=== PATIENT | female | born 1955 | race Caucasian/White ===

== ENCOUNTER 2023-01-15 12:57 | Outpatient (AMB) | payer OTHER, MEDICAID, SELFPAY ==
--- NOTE | 2023-01-15 13:19 | HO.NEPHOV_ITS ---
HPI HPI Comments History of Present Illness Details I had the privilege of seeing Alyssa in follow-up for chronic kidney disease and hypertension. Her blood sugars are better controlled. Her blood pressure has been at goal. She denies chest pain, shortness of breath, proximal nocturnal dyspnea, orthopnea, pedal edema, hematuria, fever, chills, rigors. She does not take any nonsteroidal anti-inflammatory medications. She is on lisinopril as well as diuretics. She denies any hypo glycemia. There were no new active complaints at the time of this office visit. [facility] Medical History (Updated 01/26/23 @ 03:09 by Moreno Talley MD) Hypertension Chronic kidney disease, stage 3a Surgical History (Updated 01/15/23 @ 13:24 by Tessa Conway MA) History of appendectomy Family History (Updated 01/15/23 @ 13:27 by Tessa Conway MA) Mother Cancer Sister Pacemaker Social History (Updated 01/15/23 @ 13:24 by Tessa Conway MA) Alcohol intake: never Patient Tobacco Use Status: Never used Tobacco Vital Signs 01/15/23 13:21 Height 5 ft Weight 200 lb BMI 39.1 BP 110/60 Blood Pressure Location Rt brachial Position Sitting Pulse 68 Pulse Source Pulse Oximeter Physical Exam Vital Signs: Last Vital Signs Pulse 68 01/15/23 13:21 BP 110/60 01/15/23 13:21 BMI result Body Mass Index 39.1 Const General: comfortable and no acute distress Orientation/consciousness: patient oriented x3 HEENT Head: Yes normocephalic Mouth: Normal oral and palatal mucosa present Eyes EOM: EOMs intact bilaterally Neck Neck: Yes supple Resp Auscultation: clear to auscultation bilaterally Cardio Jugular venous distension: no JVD Rate: regular rate GI Palpation (GI): Soft to palpation Auscultation: normal bowel sounds General: Yes no CVA tenderness Back/Spine/Pelvis Back: no CVA tenderness Skin General skin exam: no rashes or lesions noted Neuro General: patient oriented x3 and moves all extremities Extrem General: Yes no pedal edema Assessment & Plan Assessment & Plan (1) Hypertension: Code(s): I10 - Essential (primary) hypertension Qualifiers: Hypertension type: primary hypertension Qualified Code(s): I10 - Essential (primary) hypertension (2) Chronic kidney disease, stage 3a: Code(s): N18.31 - Chronic kidney disease, stage 3a Chandan Shah has 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 Her blood pressure is well controlled. She is tolerating WAI inhibitor. He is not on Jardiance no. She avoids nonsteroidal anti-inflammatories. She needs good maintenance of blood sugar and blood pressure at goal. She will benefit from weight loss. She needs to maintain good hydration. Follow-up labs were ordered. She is on statins. I did not make any medication changes at this visit. All questions answered. Follow-up given. Orders: Orders Electrolytes 01/15/23 I10 - Essential (primary) hypertension, N18.31 - Chronic kidney disease, stage 3a Blood Urea Nitrogen 01/15/23 I10 - Essential (primary) hypertension, N18.31 - Chronic kidney disease, stage 3a Calcium 01/15/23 I10 - Essential (primary) hypertension, N18.31 - Chronic kidney disease, stage 3a Protein Creatinine Ratio, Ur 01/15/23 I10 - Essential (primary) hypertension, N18.31 - Chronic kidney disease, stage 3a Creatinine 01/15/23 I10 - Essential (primary) hypertension, N18.31 - Chronic kidney disease, stage 3a Coding Level of Care Code Est Pt Level 3 (61196) Diagnoses Primary hypertension I10 Hypertension type: primary hypertension Chronic kidney disease, stage 3a N18.31 Results Reviewed Nephrology Results: No Data to Display
[2023-01-15 13:21] VITALS: BP 110/60; PULSE 68; BMI 39.1
== END 2023-01-15 14:07 | disposition home or self-care (01) ==
PROVIDERS: PCP Internal Medicine; Visit Provider Internal Medicine Nephrology
DX: I10 Essential (primary) hypertension (principal); N18.31 Chronic kidney disease, stage 3a
CPT/HCPCS: 99213

== ENCOUNTER → 2023-01-15 12:57 | Outpatient (BNVA) | payer OTHER, MEDICAID, SELFPAY | PROVIDERS: PCP Internal Medicine; Visit Provider Internal Medicine Nephrology | DX: I12.9 Hypertensive chronic kidney disease with stage 1 through stage 4 chronic kidney disease, or unspecified chronic kidney disease (principal); N18.31 Chronic kidney disease, stage 3a | CPT/HCPCS: 99212 ==

== ENCOUNTER 2023-05-19 13:34 | Outpatient (AMB) | payer MEDICARE, SELFPAY ==
--- NOTE | 2023-05-19 13:40 | HO.NEPHOV_ITS ---
HPI HPI Comments History of Present Illness Details I had the privilege of seeing Alyssa in follow-up for chronic kidney disease and hypertension. Her blood sugars are better controlled. Her blood pressure has been at goal. She denies chest pain, shortness of breath, proximal nocturnal dyspnea, orthopnea, pedal edema, hematuria, fever, chills, rigors. She does not take any nonsteroidal anti-inflammatory medications. She is on lisinopril as well as diuretics. She denies any hypo glycemia. [facility] Medical History (Updated 01/26/23 @ 03:09 by Moreno Talley MD) Hypertension Chronic kidney disease, stage 3a Surgical History (Updated 01/15/23 @ 13:24 by Tessa Conway MA) History of appendectomy Family History (Updated 01/15/23 @ 13: by Tessa Conway MA) Mother Cancer Sister Pacemaker Social History (Updated 01/15/23 @ 13:24 by Tessa Conway MA) Alcohol intake: never Patient Tobacco Use Status: Never used Tobacco Vital Signs 05/19/23 13:41 Height 5 ft Weight 210 lb 8 oz BMI 41.1 BP 106/70 Blood Pressure Location Lt brachial Position Sitting Pulse 60 Pulse Source Pulse Oximeter Pulse Oximetry (%) 93 Oxygen Delivery Method Room Air Physical Exam Const General: comfortable and no acute distress Orientation/consciousness: patient oriented x3 HEENT Head: Yes normocephalic Mouth: Normal oral and palatal mucosa present Eyes EOM: EOMs intact bilaterally Neck Neck: Yes supple Resp Auscultation: clear to auscultation bilaterally Cardio Jugular venous distension: no JVD Rate: regular rate GI Palpation (GI): Soft to palpation Auscultation: normal bowel sounds General: Yes no CVA tenderness Back/Spine/Pelvis Back: no CVA tenderness Skin General skin exam: no rashes or lesions noted Neuro General: patient oriented x3 and moves all extremities Extrem General: Yes no pedal edema Assessment & Plan Assessment & Plan (1) Chronic kidney disease, stage 3a: Code(s): N18.31 - Chronic kidney disease, stage 3a (2) Hypertension: Code(s): I10 - Essential (primary) hypertension Qualifiers: Hypertension type: primary hypertension Qualified Code(s): I10 - Essential (primary) hypertension Plan Alyssa has 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 Her blood pressure is well controlled. She is tolerating WAI inhibitor. She is not on Jardiance/ Farixga which could be initiated soon. She avoids nonsteroidal anti- inflammatories. She needs maintenance of blood sugar and blood pressure to goal. She will benefit from weight loss. She needs to maintain good hydration. Follow-up labs were ordered. She is on statins. I did not make any medication changes at this visit. All questions answered. Follow-up given. Orders: Orders Protein Creatinine Ratio, Ur Today I10 - Essential (primary) hypertension, N18.31 - Chronic kidney disease, stage 3a Creatinine Today I10 - Essential (primary) hypertension, N18.31 - Chronic kidney disease, stage 3a Blood Urea Nitrogen Today I10 - Essential (primary) hypertension, N18.31 - Chronic kidney disease, stage 3a Electrolytes Today I10 - Essential (primary) hypertension, N18.31 - Chronic kidney disease, stage 3a Hemoglobin A1c Today I10 - Essential (primary) hypertension, N18.31 - Chronic kidney disease, stage 3a Coding Level of Care Code Est Pt Level 3 (60870) Diagnoses Chronic kidney disease, stage 3a N18.31 Primary hypertension I10 Hypertension type: primary hypertension Results Reviewed Nephrology Results: No Data to Display
[2023-05-19 13:41] VITALS: BP 106/70; PULSE 60; O2SAT 93; BMI 41.1
== END 2023-05-19 14:07 | disposition home or self-care (01) ==
PROVIDERS: PCP Internal Medicine; Visit Provider Internal Medicine Nephrology
DX: N18.31 Chronic kidney disease, stage 3a (principal); I10 Essential (primary) hypertension
CPT/HCPCS: 99213

== ENCOUNTER → 2023-05-19 13:34 | Outpatient (BNVA) | payer MEDICARE, MEDICAID, SELFPAY | PROVIDERS: PCP Internal Medicine; Visit Provider Internal Medicine Nephrology | DX: I12.9 Hypertensive chronic kidney disease with stage 1 through stage 4 chronic kidney disease, or unspecified chronic kidney disease (principal); N18.31 Chronic kidney disease, stage 3a | CPT/HCPCS: 99212 ==